=== PATIENT | female | born 1945 | race Caucasian/White ===

== ENCOUNTER 2017-03-22 14:15 | Emergency (ER) | payer MEDICARE ==
--- NOTE | 2017-03-22 15:44 | UC ---
Respiratory Complaint HPI - HPI Summary HPI Summary: 71 y/o female presents to the urgent care c/o productive cough and chest congestion for the past 3 weeks. Pt states she is now producing green phlegm w/ mils SOB on exertion. Pt states she had the flu about 4 weeks ago and then she developed the cough. She has decrease appetite with fatigue, but has been drinking fluids for the past 3 days. Pt denies fever, chest pain, N/V/D, dizziness, abdominal pain. Pt has not taking anything to alleviate symptoms - History of Current Complaint Chief Complaint: UCRespiratory Stated Complaint: RESPIRATORY,CONGESTION,COUGH Time Seen by Provider: 03/22/17 15:40 Hx Obtained From: Patient Onset/Duration: Gradual Onset, Lasting Weeks - 3 weeks, Still Present, Worse Since - 3 days Timing: Intermittent Episodes Severity Initially: Mild Severity Currently: Moderate Pain Intensity: 3 Pain Scale Used: 0-10 Numeric Character: Cough: Productive, Sputum Description: - green Aggravating Factors: Exertion, Recumbent Position Alleviating Factors: Nothing Associated Signs And Symptoms: Positive: Chills, URI, Nasal Congestion, Sinus Discomfort. Negative: Fever - Risk Factors Pulmonary Embolism Risk Factors: Negative Cardiac Risk Factors: Negative Pseudomonas Risk Factors: Negative Tuberculosis Risk Factors: Negative - Allergies/Home Medications Allergies/Adverse Reactions: Allergies Allergy/AdvReac Type Severity Reaction Status Date / Time No Known Allergies Allergy Verified 03/22/17 14:56 Home Medications: Home Medications Anastrozole (NF) [Arimidex (NF)] 2 mg PO DAILY 03/22/17 [History Confirmed 03/22] Dextromethorphan-Guaifenesin [Mucinex Dm Maximum Streng 60-1200 mg] 1 tab PO Q12H PRN 03/22/17 [History Confirmed 03/22/17] Homeopathic Products [Zinc Lozenges] 1 gaurang MT Q2H PRN 03/22/17 [History Confirmed 03/22/17] PMH/Surg Hx/FS Hx/Imm Hx Previously Healthy: Yes Cancer History: Breast Cancer - RT breast cancer s/p lumpectomy - Surgical History Surgical History: Yes Surgery Procedure, Year, and Place: Right [facility] - Family History Known Family History: Positive: Cardiac Disease, Hypertension Family History: Stroke - Social History Occupation: Retired Lives: With Family Alcohol Use: None Substance Use Type: None Smoking Status (MU): Never Smoked Tobacco - Immunization History Vaccination Up to Date: Yes Review of Systems Constitutional: Chills Skin: Negative Eyes: Negative ENT: Nasal Discharge, Sinus Congestion Respiratory: Shortness Of Breath, Cough - productive Cardiovascular: Negative Gastrointestinal: Negative Genitourinary: Negative Motor: Negative Neurovascular: Negative Musculoskeletal: Negative Neurological: Negative Psychological: Negative Is Patient Immunocompromised?: No All Other Systems Reviewed And Are Negative: Yes Physical Exam Triage Information Reviewed: Yes Vital Signs: Initial Vital Signs Temp 98.6 F 03/22/17 14:53 Pulse 82 03/22/17 14:53 Resp 20 03/22/17 14:53 BP 124/72 03/22/17 14:53 Pulse Ox 97 03/22/17 14:53 - Additional Comments Vital Signs Reviewed: Yes General: well developed, well nourished female sitting in the examining table w/ o any apparent distress Eyes: Positive: Conjunctiva Clear - PERRLA, EOMI, fundi grossly normal ENT: Positive: Normal ENT inspection, Hearing grossly normal, Pharynx normal, Nasal congestion - edematous and erythematous nasal mucosa, Nasal drainage - yellowish drainage, TMs normal. Negative: Tonsillar swelling, Tonsillar exudate Neck: Positive: Supple, Nontender, No Lymphadenopathy Respiratory: no orthopnea or dyspnea. Able to speak in full sentences, no retractions or accessory muscle use, no tripod position, stridor, or head bobbing. Positive breath sound with mild ronchi in the posterior RT lung, no wheezes or crackles or rales.. Cardiovascular: Positive: RRR, No Murmur, Pulses Normal, Brisk Capillary Refill Abdomen Description: Positive: Nontender, No Organomegaly, Soft. Negative: CVA Tenderness (R), CVA Tenderness (L) Bowel Sounds: Positive: Present Musculoskeletal Exam: Normal Musculoskeletal: Positive: Strength Intact, ROM Intact, No Edema Neurological Exam: Normal Psychological Exam: Normal Skin Exam: Normal UC Diagnostic Evaluation - Laboratory O2 Sat by Pulse Oximetry: 97 Respiratory Course/Dx - Course Course Of Treatment: 71 y/o female presents to the urgent care c/o productive cough and chest congestion for the past 3 weeks. Pt states she is now producing green phlegm w/ mild SOB on exertion. Pt states she had the flu about 4 weeks ago and then she developed the cough. She has decrease appetite with fatigue, but has been drinking fluids for the past 3 days. Pt denies fever, chest pain, N /V/D, dizziness, abdominal pain. Pt has not taking anything to alleviate symptoms. Hx obtained. Pt with mild rhonchi on the posterior RT lung on examination, O2Sat:97%. Pt with Hx of breast cancer s/p RT breast lumpectomy 2011, managed by Oncologist DR Rodriguez. Chest X-ray ordered to r/o pneumonia. Impression:No radiographic evidence of acute pulmonary disease. Influenza A&B: negtive. Pt given albuterol neb Tx to alleviate bronchospasm. Pt tolerated well Tx, lungs cleared on auscultaion. I discussed all the findings and test results with the patient. Pt Rx Z-jeremie ans Albuterol inahler for acute Bronchitis. She was instructed to go to the emergency room if symptoms worsen if she develops fever, severe SOB. Plan of care was discussed with the patient. Pt understands and agree. All questions were answered at patient satisfaction. There were no further complaints or concerns. Pt left the clinic hemodynamically stable, A&OX3 - Differential Dx/Diagnosis Differential Diagnosis/HQI/PQRI: Asthma, Bronchitis, Influenza, Lower Resp Infection, Other - pneumonia Provider Diagnoses: 1- Acute bronchitis. 2-Bronchospasm Discharge - Discharge Plan Condition: Stable Disposition: HOME Prescriptions: Albuterol HFA INHALER* [Ventolin HFA Inhaler*] 1 - 2 puff INH Q6H PRN #1 mdi PRN Reason: Cough Azithromyxin JEREMIE (NF) [Z-Jeremie (Zithromax) 250 mg tabs #6] 2 tab PO .TODAY, THEN 1 DAILY #6 tab Benzonatate CAP* [Tessalon 100 MG CAP*] 100 mg PO TID #21 cap Patient Education Materials: Acute Bronchitis (ED), Low-Sodium Diet (ED) Referrals: Chelsy Sutherland MD [Primary Care Provider] - 2 Days Additional Instructions: 1-Please take full course of antibiotic to avoid resistance. 2-Take Tessalon PO tabs as directed and use the albuterol inhaler to alleviate sough. Increase fluid intake, rest and eat well. 3- If symptoms do not improve or worsen or your develop SOB with fever and severe wheezing please go immediately to the ER further evaluation and treatment. 4- F/u with your PCP in 2-3 days for further management if your symptoms are not improving. 5-Your BP is elevated today. please decrease salt in your diet, monitor BP and if it continues to be elevated please f/u with your PCP for further management
[2017-03-22] MEDS ORDERED: Albuterol 2.5 MG/3 ML NEB.SOL* (0.083%) INH ONE (16:15)
[2017-03-22 17:06] VITALS: BP 153/60
[2017-03-22] MEDS ORDERED: Acetaminophen TAB* 325 MG PO ONE (17:15)
--- NOTE | 2017-03-22 17:15 | RAD ---
INDICATION: 3 weeks of productive cough and shortness of breath COMPARISON: Chest x-ray dated September 25, 2008 TECHNIQUE: PA and lateral views of the chest were obtained. FINDINGS: The heart and mediastinum are normal in size and contour. The lungs are grossly clear. There is no evidence of large pleural effusion. Visualized bones are normal for the patient's age. There is no radiographic evidence of free air beneath the diaphragm IMPRESSION: No radiographic evidence of acute cardiopulmonary disease.
== END 2017-03-22 17:38 | disposition home or self-care (01) ==
LOC: UCCORT 14:15
DX: J20.9 Acute bronchitis, unspecified (principal); Z85.3 Personal history of malignant neoplasm of breast
CPT/HCPCS: 71046; 87502; 99213; A9270-GY; G0463

== ENCOUNTER 2017-10-20 09:00 | Emergency (ER) | payer MEDICARE ==
[2017-10-20 09:37] VITALS: BP 132/66
--- NOTE | 2017-10-20 09:49 | UC ---
Complaint Female HPI - HPI Summary HPI Summary: dysuria x 5 days no fever, no chills, no flank pain + blood in the urine this morning - History Of Current Complaint Chief Complaint: UCGU Stated Complaint: URINARY Time Seen by Provider: 10/20/17 09:18 Hx Obtained From: Patient Onset/Duration: Gradual Onset, Lasting Days - 5, Still Present Timing: Constant Severity Initially: Moderate Severity Currently: Moderate Pain Intensity: 3 Character: Burning Aggravating Factor(s): Urination Associated Signs And Symptoms: Negative: Fever, Back Pain, Vaginal Bleeding/ Discharge, Vaginal Discharge, Nausea, Vomiting(# Of Episodes =), Genital Swelling, Genital Blisters, Retained Foregin Body (Specify) - Allergies/Home Medications Allergies/Adverse Reactions: Allergies Allergy/AdvReac Type Severity Reaction Status Date / Time No Known Allergies Allergy Verified 10/20/17 09:37 PMH/Surg Hx/FS Hx/Imm Hx - Additional Past Medical History Additional PMH: hx of breast CA Cancer History: Breast Cancer - Surgical History Surgical History: Yes Surgery Procedure, Year, and Place: Right Breast Lumpectomy, 2011, [facility] - Family History Known Family History: Positive: Cardiac Disease, Hypertension Family History: Stroke - Social History Alcohol Use: None Substance Use Type: None Smoking Status (MU): Never Smoked Tobacco - Immunization History Vaccination Up to Date: Yes Review of Systems Constitutional: Negative Skin: Negative Eyes: Negative ENT: Negative Respiratory: Negative Cardiovascular: Negative Genitourinary: Dysuria, Hematuria, Frequency Is Patient Immunocompromised?: No All Other Systems Reviewed And Are Negative: Yes Physical Exam Triage Information Reviewed: Yes Appearance: Well-Appearing, No Pain Distress, Well-Nourished Vital Signs: Initial Vital Signs Temp 98.5 F 10/20/17 09:15 Pulse 65 10/20/17 09:15 Resp 12 10/20/17 09:15 BP 132/66 10/20/17 09:15 Pulse Ox 100 10/20/17 09:15 Vital Signs Reviewed: Yes Eyes: Positive: Conjunctiva Clear ENT: Positive: Normal ENT inspection, Hearing grossly normal, Pharynx normal Neck: Positive: Supple, Nontender, No Lymphadenopathy Respiratory: Positive: Chest non-tender, Lungs clear, Normal breath sounds Cardiovascular: Positive: RRR, No Murmur, Pulses Normal Abdomen Description: Positive: Nontender, No Organomegaly, Soft. Negative: CVA Tenderness (R), CVA Tenderness (L), Distended, Guarding Bowel Sounds: Positive: Present Skin Exam: Normal Complaint Female Dx - Differential Dx/Diagnosis Provider Diagnoses: uti Discharge - Sign-Out/Discharge Documenting (check all that apply): Patient Departure - Discharge Plan Condition: Stable Disposition: HOME Prescriptions: Cephalexin CAP* [Keflex CAP*] 500 mg PO TID #30 cap Patient Education Materials: Urinary Tract Infection in Women (ED) Referrals: Chelsy Sutherland MD [Primary Care Provider] - 7 Days - Billing Disposition and Condition Condition: STABLE Disposition: Home
== END 2017-10-20 09:52 | disposition home or self-care (01) ==
LOC: UCCORT 09:00
DX: N39.0 Urinary tract infection, site not specified (principal)
CPT/HCPCS: 87077; 87086; 87186; 99212; G0463

== ENCOUNTER 2018-11-25 12:31 | Emergency (ER) | payer MEDICARE ==
--- OUTSIDE RECORDS SUMMARY | 2018-11-25 12:37 | XMS REPORT | Continuity of Care Document ---
:1945 External Reference #:[id number] Author Name Glory Muhammad MD, PHD Address [address] [place] [address], [address] [place] [id number] Care Team Providers Name Role Phone Glory Muhammad MD, PHD - Family Care Team Information [employer] Medicine Problems Active Problems Provider Date Neck sprain Onset: 02/26/2003 Tear film insufficiency Glory Muhammad MD, PHD Onset: 09/20/2018 Allergic rhinitis Glory Muhammad MD, PHD Onset: 09/20/2018 Social History Type Date Description Comments Sex Unknown ETOH Use Rarely consumes alcohol Tobacco Use Start: Unknown Patient has never smoked Smoking Status Reviewed: 10/30/18 Patient has never smoked Allergies, Adverse Reactions, Alerts Description No Known Drug Allergies Medications Active Medications SIG Qnty Indications Ordering Provider Date Claritin 1 tab by mouth 90tabs J30.2 Glory Muhammad, 09/20/2018 10mg Tablets every day as , PHD needed Tumeric 2 capsules daily Glory Muhammad, 09/18/2018 , PHD Anastrozole 1 tabl by mouth Unknown 1mg Tablets every day Spirulina 2 caps a day Unknown Powder Fenugreek 2 by mouth every Unknown 610mg day Capsules Glucosamine 4 by mouth every Unknown 500mg day Tablets Bee 1 capsule daily Unknown Zybett-Letuvlba-Fmuki jelly Tablets Vitamin D 1 by mouth every Unknown 2000Unit day Capsules Biotin Maximum 1 by mouth every Unknown [id number] day Tablets Dispers Vital Reds 1 daily Unknown Juice Plus 1 daily Unknown Lecithin-19 2 tabs by mouth Unknown 1200mg once a day Capsules Immunizations Description No Information Available Vital Signs Date Vital Result Comment 10/30/2018 9:02am BP Systolic 118 mmHg manual BP Diastolic 64 mmHg manual Body Temperature 97.3 F Heart Rate 63 /min Respiratory Rate 16 /min Height 64.75 inches 5'4.75" Weight 124.00 lb BMI (Body Mass Index) 20.8 kg/m2 BSA (Body Surface Area) 1.61 m2 [place] body weight in kilograms 56 kg O2 % BldC Oximetry 98 % 09/20/2018 8:41am BP Systolic 137 mmHg BP Diastolic 76 mmHg Body Temperature 97.8 F Heart Rate 61 /min Respiratory Rate 18 /min Height 64.75 inches 5'4.75" Weight 124.00 lb BMI (Body Mass Index) 20.8 kg/m2 BSA (Body Surface Area) 1.61 m2 [place] body weight in kilograms 56 kg O2 % BldC Oximetry 98 % Results Description No Information Available Procedures Date Code Description Status 03/07/2017 38348170 Mammogram Completed 03/07/2016 765538594 Bone Mineral Density Test Completed Medical Devices Description No Information Available Encounters Type Date Location Provider Dx Diagnosis Office Visit 09/20/2018 Family Medicine Glory Muhammad, Z00.00 Encntr for general 8:30a Lenny Gil MD, PHD adult medical exam w/o abnormal findings J30.2 Other seasonal allergic rhinitis H04.123 Dry eye syndrome of bilateral lacrimal glands Assessments Date Code Description Provider 10/30/2018 Z00.00 Encounter for general adult medical Glory Muhammad MD, PHD examination without abnormal findings 09/20/2018 Z00.00 Encounter for general adult medical Glory Muhammad MD, PHD examination without abnormal findings 09/20/2018 J30.2 Other seasonal allergic rhinitis Glory Muhammad MD, PHD 09/20/2018 H04.123 Dry eye syndrome of bilateral lacrimal Glory Muhammad MD, PHD glands Plan of Treatment 10/30/2018 - Glory Muhammad MD, PHDZ00.00 Encounter for general adult medical examination without abnormal findingsFollow up:Follow up for test results, as needed, or in 1 year.Recommendations:https:// [email or web address] Goals 10/30/2018 - Glory Muhammad MD, PHDZ00.00 Encounter for general adult medical examination without abnormal findingsGoals: _Normal BMI _Healthy mediterranean/ Omniheart diet most of the time _Daily exercise - 30 min or more total _Normal vitamin levels, especially D and B12 _No more than 1-2 caffine drinks daily _7- 8hours of sleep almost every night _Normal blood pressure _Normal cholesterol levels Functional Status Functional Condition Comment Date Status Independent with all ADL's Active Mental Status Description No Information Available Referrals Description No Information Available
[2018-11-25 12:47] VITALS: BP 132/72
--- NOTE | 2018-11-25 12:57 | UC ---
Complaint Female HPI - HPI Summary HPI Summary: Pt presents with c/o sudden onset of burining with urination that began last evening. Pt then noticed blood in her urine this morning. - History Of Current Complaint Stated Complaint: UTI SYMPTOMS Time Seen by Provider: 11/25/18 12:40 Hx Obtained From: Patient ?: No Onset/Duration: Sudden Onset, Lasting Days - 1 Timing: Intermittent Severity Initially: Mild Severity Currently: Mild Pain Intensity: 4 Character: Dull, Burning Aggravating Factor(s): Urination Alleviating Factor(s): Nothing Associated Signs And Symptoms: Positive: Negative - Risk Factors Ectopic Risk Factor: Negative Ovarian Torsion Risk Factor: Negative - Allergies/Home Medications Allergies/Adverse Reactions: Allergies Allergy/AdvReac Type Severity Reaction Status Date / Time No Known Allergies Allergy Verified 11/25/18 12:39 PMH/Surg Hx/FS Hx/Imm Hx Previously Healthy: Yes Cancer History: Breast Cancer - Surgical History Surgical History: Yes Surgery Procedure, Year, and Place: Right Breast Lumpectomy, 2011, [facility] - Family History Known Family History: Positive: Cardiac Disease, Hypertension Family History: Stroke - Social History Occupation: Employed Part-time Lives: With Family Alcohol Use: None Substance Use Type: None Smoking Status (MU): Never Smoked Tobacco Have You Smoked in the Last Year: No - Immunization History Vaccination Up to Date: Yes Review of Systems All Other Systems Reviewed And Are Negative: Yes Constitutional: Positive: Negative Skin: Positive: Negative Eyes: Positive: Negative ENT: Positive: Negative Respiratory: Positive: Negative Cardiovascular: Positive: Negative Gastrointestinal: Positive: Negative Genitourinary: Positive: Dysuria, Hematuria Motor: Positive: Negative Neurovascular: Positive: Negative Musculoskeletal: Positive: Negative Neurological: Positive: Negative Psychological: Positive: Negative Is Patient Immunocompromised?: No Physical Exam Triage Information Reviewed: Yes Appearance: Well-Appearing Vital Signs: Initial Vital Signs Temp 98.8 F 11/25/18 12:42 Pulse 75 11/25/18 12:42 Resp 18 11/25/18 12:42 BP 132/72 11/25/18 12:42 Pulse Ox 100 11/25/18 12:42 Vital Signs Reviewed: Yes Eye Exam: Normal ENT Exam: Normal Dental Exam: Normal Neck exam: Normal Respiratory: Positive: No respiratory distress Musculoskeletal Exam: Normal Neurological Exam: Normal Psychological Exam: Normal Skin Exam: Normal Complaint Female Dx - Differential Dx/Diagnosis Differential Diagnosis/HQI/PQRI: Urinary Tract Infection Provider Diagnosis: UTI (urinary tract infection) Discharge ED - Sign-Out/Discharge Documenting (check all that apply): Patient Departure All imaging exams completed and their final reports reviewed: No Studies - Discharge Plan Condition: Stable Disposition: HOME Prescriptions: Cephalexin CAP* [Keflex 500 CAP*] 500 mg PO Q8H #21 cap Phenazopyridine TAB* [Pyridium 100 mg TAB*] 100 mg PO Q8H #3 tab Patient Education Materials: Urinary Tract Infection in Women (ED) Referrals: Glory Muhammad MD [Primary Care Provider] - If Needed - Billing Disposition and Condition Condition: STABLE Disposition: Home
== END 2018-11-25 13:13 | disposition home or self-care (01) ==
LOC: UCCORT 12:31
DX: N39.0 Urinary tract infection, site not specified (principal)
CPT/HCPCS: 81003; 87086; 99212; G0463